=== PATIENT | female | born 1940 | race Caucasian/White ===

== ENCOUNTER 2022-05-13 09:19 | Emergency (ER) | payer MEDICARE ==
[~2022-05-13] VITALS: Ht 149.9 cm; Wt 61.2 kg
--- NOTE | 2022-05-13 09:20 | NUR ---
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
[2022-05-13 09:26] VITALS: BP_SYST 138
--- NOTE | 2022-05-13 09:26 | NUR ---
[facility] medics, no LOC. Per pt, not on blood thinners except intermittent ASA 81 mg. Pt not able to rate pain on a scale; noted holding ice pack to L side of head. Pt's primary language not [place], but pt can communicate needs at this time. Pt alert and oriented upon face to face assessment. Able to transfer from [facility] to [facility] without complication. Pending radiology.
--- NOTE | 2022-05-13 09:26 | NUR ---
Patient to ER bed 3 to gown for evaluation. Side rails up. Report given to Cheryle JIANG.
--- NOTE | 2022-05-13 09:39 | NUR ---
Pt to CT scan via wheelchair
--- NOTE | 2022-05-13 10:30 | NUR ---
Patient given written and verbal discharge instructions and verbalizes understanding. ER MD discussed with patient the results and treatment provided. Patient in stable condition. ID arm band removed. Patient educated on pain management and to follow up with PMD. Opportunity for questions provided and answered.
[2022-05-13] MEDS ORDERED: IBUP-1969 PO (10:52)
== END 2022-05-13 10:30 | disposition home or self-care (01) ==
LOC: SED 09:19
DX: S00.83XA Contusion of other part of head, initial encounter (principal); W01.0XXA Fall on same level from slipping, tripping and stumbling without subsequent striking against object, initial encounter; Y93.89 Activity, other specified; Y92.89 Other specified places as the place of occurrence of the external cause; Y99.8 Other external cause status
CPT/HCPCS: 70450-TC; 76376; 99284